=== PATIENT | male | born 1990 | race Caucasian/White ===

== ENCOUNTER 2017-09-07 18:30 | Emergency (ER) | payer SELFPAY ==
[~2017-09-07] VITALS: Ht 175.3 cm; Wt 58.1 kg
[2017-09-07 18:34] VITALS: BP_SYST 154; BP_SYST 91; BP_DIAS 111; BP_DIAS 91; PULSE 111; PULSE 18; RESP 18; TEMP 97.9; O2SAT 99
[2017-09-07 18:56] VITALS: BP 141/88; PULSE 108; RESP 18; O2SAT 100
[2017-09-07] MEDS ORDERED: VIVI380I IM (19:24)
[2017-09-07] MEDS ORDERED: SODIUM CHLOR 0.9% 1000 ML INJ 1,000 ML IV ONE (19:30)
[2017-09-07 19:47] VITALS: O2SAT 97
--- NOTE | 2017-09-07 19:53 | PD ---
HPI Chief Complaint: Edema Time Seen by Provider: 19:22 Travel History International Travel<30 days: No Contact w/Intl Traveler<30days: No Traveled to known affect area: No History of Present Illness HPI 27-year-old male presents to the emergency department for not feeling well over the last 6 hours to one day. Patient admits to IV drug abuse. Patient admits to IV cocaine use. Patient states last injection was one hour prior to arrival to the emergency department. Patient reports feeling cold throughout the day. Patient is taking hot showers to try to warm himself up. Is not noted any fever. Patient also has intermittent episodes of chest pain although denies any chest pain this time is intermittent episodes of feeling short of breath but does not feel short of breath at this time days noticed that he thinks his hands seem a little bit more red than usual and is does seem more red than usual. Patient denies any abdominal pain. Does not report any nausea or vomiting. Occasionally has right-sided flank pain. Denies any lower extremity numbness tingling weakness bladder or bowel dysfunction or saddle anesthesia. Father states she's been using cocaine and Xanax frequently over the past 10-11 days. Patient also admits to alcohol use tobacco use and marijuana use. Patient reports his primary places of injection both upper extremities and his left inner thigh. Patient admits to prior Dilaudid abuse. Patient rates pain, 0 /10. PFSH Past Medical History Medical History: Denies Significant Hx Past Surgical History Surgical History: No Previous Surgery Social History Alcohol Use: Yes (REFUSES TO QUANTIFY) Tobacco Use: Yes (REFUSES TO QUANTIFY) Substance Use: Yes (COCAINE, XANAX, POT) Allergies-Medications (Allergen,Severity, Reaction): Coded Allergies: No Known Allergies (Verified Allergy, Unknown, 09/07/17) Reported Meds & Prescriptions Reported Meds & Active Scripts Active Reported Vivitrol Inj (Naltrexone Inj) 380 Mg Inj 380 Mg IM Q28D Review of Systems Except as stated in HPI: all other systems reviewed are Neg General / Constitutional: Positive: Chills, No: Fever HENT: Positive: Lightheadedness, No: Headaches, Sore Throat, Congestion, Neck Stiffness, Neck Pain Cardiovascular: Positive: Chest Pain or Discomfort (intermittently none now), No: Syncope Respiratory: Positive: Shortness of Breath (occasionally, none now), No: Cough , Pleuritic Pain (intermittently none now) Gastrointestinal: No: Nausea, Vomiting, Diarrhea, Abdominal Pain Genitourinary: Positive: Flank Pain (right flank intermittently), No: Dysuria Musculoskeletal: Positive: Edema (fingers and toes today intermittently no pallor), No: Myalgias, Arthralgias, Limited ROM, Weakness, Cramping, Pain Skin: Positive Rash (multiple scars over the upper extremities and left medial thigh from IV drug abuse injection sites) Neurologic: Positive: Weakness, No: Dizziness, Syncope, Focal Abnormalities, Coordination Problem, Headache, Slurred Speech, Paresthesia, Seizures Psychiatric: Positive: Substance Abuse, No: Suicidal Ideations, Disorder of Thought, Mood Disorder Endocrine: No: Heat Intolerance, Cold Intolerance Hematologic/Lymphatic: No: Easy Bruising Physical Exam Narrative GENERAL: Well-developed well-nourished male in no acute distress no respiratory distress; GCS 15 SKIN: Warm and dry. Multiple track villeda over the bilateral upper extremities and left medial thigh no redness no induration no drainage no fluctuance no ecchymosis no point tenderness vesicles no pustules no petechia no purpura. No Janeway or Osler's lesions. HEAD: Atraumatic. Normocephalic. EYES: Pupils equal and round. No scleral icterus. No injection or drainage. ENT: No nasal bleeding or discharge. Mucous membranes pink and moist. NECK: Trachea midline. No JVD. CARDIOVASCULAR: Regular rate and rhythm. No murmurs rubs or gallops. RESPIRATORY: No accessory muscle use. Clear to auscultation. Breath sounds equal bilaterally. GASTROINTESTINAL: Abdomen soft, non-tender, nondistended. Hepatic and splenic margins not palpable. MUSCULOSKELETAL: Extremities without clubbing, cyanosis, or edema. No obvious deformities. Bilateral hands demonstrate intact range of motion of each digit including thumb apposition capillary refill intact with each visit no edema no pallor no erythema no increased warmth no coolness no deformity multiple track villeda were bilateral upper extremities and noted to the left medial thigh bilateral digits of the feet hold erythema no increased warmth capillary refill brisk and less than 2 seconds sensation intact no fullness vesicles no pustules is a small ecchymotic area to the medial dorsal distal left foot patient reports present for several days after contusing it against something denies pain. Dorsalis pedis pulses 2+ to palpation bilaterally as well as posterior tibialis pulses and radial pulses 2+ to palpation bilaterally. No tenderness to palpation along the dorsal or lumbar spine. NEUROLOGICAL: Awake and alert. No obvious cranial nerve deficits. Motor grossly within normal limits. Five out of 5 muscle strength in the arms and legs. Sensory exam intact as tested. DTRs 2+ and equal bilaterally. Normal speech. PSYCHIATRIC: Appropriate mood and affect; insight and judgment normal. Data Data Last Documented VS Vital Signs Date Time Temp Pulse Resp B/P (MAP) Pulse Ox O2 Delivery O2 Flow Rate FiO2 09/07/17 20:10 103 18 137/85 (102) 99 Room Air 09/07/17 18:34 97.9 Orders Orders Sepsis Workup Initiated (09/07/17 ) Electrocardiogram (09/07/17:22) Complete Blood Count With Diff (09/07/17:) Comprehensive Metabolic Panel (09/07/17:) Prothrombin Time / Inr (Pt) (09/07/17:) Act Partial Throm Time (Ptt) (09/07/17:) Lactic Acid Sepsis Protocol (09/07/17 19:22) Magnesium (Mg) (09/07/17 19:22) Ckmb (Isoenzyme) Profile (09/07/17:) Troponin I (09/07/17:) Urinalysis - C+S If Indicated (09/07/17 19:22) Blood Culture (09/07/17 19:22) Chest, Single Ap (09/07/17:) Blood Glucose (09/07/17:22) Ecg Monitoring (09/07/17:) Iv Access Insert/Monitor (09/07/17 19:22) Oximetry (09/07/17 19:22) Oxygen Administration (09/07/17:22) Sodium Chlor 0.9% 1000 Ml Inj (Ns 1000 M (09/07/17 19:30) Drug Screen, Random Urine (09/07/17 19:22) Labs Laboratory Tests Test 09/07/17 19:47 White Blood Count 7.2 TH/MM3 Red Blood Count 4.89 MIL/MM3 Hemoglobin 13.6 GM/DL Hematocrit 42.0 % Mean Corpuscular Volume 85.9 FL Mean Corpuscular Hemoglobin 27.9 PG Mean Corpuscular Hemoglobin Concent 32.4 % Red Cell Distribution Width 14.1 % Platelet Count 480 TH/MM3 Mean Platelet Volume 6.7 FL Neutrophils (%) (Auto) 71.8 % Lymphocytes (%) (Auto) 18.7 % Monocytes (%) (Auto) 8.1 % Eosinophils (%) (Auto) 0.9 % Basophils (%) (Auto) 0.5 % Neutrophils # (Auto) 5.2 TH/MM3 Lymphocytes # (Auto) 1.3 TH/MM3 Monocytes # (Auto) 0.6 TH/MM3 Eosinophils # (Auto) 0.1 TH/MM3 Basophils # (Auto) 0.0 TH/MM3 CBC Comment DIFF FINAL Differential Comment Prothrombin Time 12.0 SEC Prothromb Time International Ratio 1.2 RATIO Activated Partial Thromboplast Time 34.2 SEC Urine Color YELLOW Urine Turbidity CLEAR Urine pH 5.5 Urine Specific [place] 1.006 Urine Protein NEG mg/dL Urine Glucose (UA) NEG mg/dL Urine Ketones 15 mg/dL Urine Occult Blood TRACE Urine Nitrite NEG Urine Bilirubin NEG Urine Leukocyte Esterase NEG Urine WBC 0-2 /hpf Urine Squamous Epithelial Cells 0-5 /hpf Microscopic Urinalysis Comment CATH-CULT NOT IND Blood Urea Nitrogen 10 MG/DL Creatinine 1.00 MG/DL Random Glucose 76 MG/DL Total Protein 8.8 GM/DL Albumin 3.9 GM/DL Calcium Level 9.0 MG/DL Magnesium Level 2.5 MG/DL Alkaline Phosphatase 42 U/L Aspartate Amino Transf (AST/SGOT) 16 U/L Alanine Aminotransferase (ALT/SGPT) 17 U/L Total Bilirubin 0.6 MG/DL Sodium Level 135 MEQ/L Potassium Level 3.4 MEQ/L Chloride Level 97 MEQ/L Carbon Dioxide Level 29.1 MEQ/L Anion Gap 9 MEQ/L Estimat Glomerular Filtration Rate 90 ML/MIN Lactic Acid Level 1.0 mmol/L Total Creatine Kinase 59 U/L Troponin I LESS THAN 0.02 NG/ML Urine Opiates Screen NEG Urine Barbiturates Screen NEG Urine Amphetamines Screen NEG Urine Benzodiazepines Screen POS Urine Cocaine Screen POS Urine Cannabinoids Screen NEG [facility] Medical Decision Making Medical Screen Exam Complete: Yes Emergency Medical Condition: Yes Medical Record Reviewed: Yes Interpretation(s) EKG: Sinus rhythm rate 98 left atrial enlargement no acute ST elevation injury pattern or ectopy noted CBC & BMP Diagram 09/07/17 19:47 Total Protein 8.8 H, Albumin 3.9, Calcium Level 9.0, Magnesium Level 2.5, Alkaline Phosphatase 42 L, Aspartate Amino Transf (AST/SGOT) 16, Alanine Aminotransferase (ALT/SGPT) 17, Total Bilirubin 0.6 Vital Signs Date Time Temp Pulse Resp B/P (MAP) Pulse Ox O2 Delivery O2 Flow Rate FiO2 09/07/17 20:10 103 18 137/85 (102) 99 Room Air 09/07/17 19:47 97 Room Air 09/07/17 18:56 108 18 100 Room Air 09/07/17 18:56 108 18 141/88 (105) 100 Room Air 09/07/17 18:34 97.9 111 18 154/91 (112) 99 Lactic: 1.0 ck: 59, not elevated; trop i:,0.02, not elevated Differential Diagnosis Polysubstance abuse, accidental overdose, septic emboli, sepsis, arrhythmia; no clinical findings for endocarditis, epidural abscess, sepsis, dvt Narrative Course Patient placed on manager cardiac cath IV access obtained specimens collected and sent for resulting EKG performed shows sinus rhythm no acute ST elevation or injury pattern or ectopy noted B @ 8:38 PM lab values resulted imaging studies show nothing acute EKG shows nothing acute drug screen is positive for benzodiazepines and cocaine which patient admits to using over the past 7-10 days; at this point I'm physical exam is unremarkable for any focality on exam no murmur no rub no rales no rhonchi nontender abdomen flank and no Janeway lesions as well as nursing notes no point tenderness along the spine. Patient at this point in time reports he feels clinically improved after 1 L of normal saline vital signs remained stable and patient is stable for outpatient management with ongoing discussion with recommendation for discontinue substance use. Patient is also encouraged her to the emergency department for any ongoing or worsening symptoms and something may be in the process of developing that has not been identified at this time patient is aware of this is to monitor his temperature with thermometer take acetaminophen as needed for fever and return to the emergency department for any concerns. Father is at bedside. Diagnosis Primary Impression: Substance use disorder Referrals: Primary Care Physician 3 days Patient Instructions: General Instructions Additional Instructions: Discontinue substance use Follow-up with your primary care provider Monitor temperature every 4 hours with thermometer take as needed acetaminophen/ Tylenol for fever 100.4F or greater Return to the emergency department for pain fever vomiting or any concerns Add potassium containing foods and beverages to dietary intake Increase fluid hydration with non-alcoholic beverages Disposition: 01 DISCHARGE HOME Condition: Stable Jeanette Ndiaye MD Sep 07, 2017 19:53
[2017-09-07 19:56] LABS: AUTOMATED NEUTROPHIL # 5.2 TH/MM3 (1.8-7.7); BASOPHIL % 0.5 % (0.0-2.0); EOSINOPHIL # 0.1 TH/MM3 (0-0.4); EOSINOPHIL % 0.9 % (0.0-4.0); HEMOGLOBIN 13.6 GM/DL (13.0-17.0); LYMPH % 18.7 % (9.0-44.0); LYMPHOCYTE # 1.3 TH/MM3 (1.0-4.8); MEAN CELL VOLUME 85.9 FL (80.0-100.0); MEAN CORPUSCULAR HEMOGLOBIN 27.9 PG (27.0-34.0); MEAN CORPUSCULAR HGB CONC 32.4 % (32.0-36.0); MEAN PLATELET VOLUME 6.7 FL (7.0-11.0); MONO % 8.1 % (0.0-8.0); MONOCYTE # 0.6 TH/MM3 (0-0.9); NEUT % 71.8 % (16.0-70.0); PLATELET COUNT 480 TH/MM3 (150-450); RED BLOOD COUNT 4.89 MIL/MM3 (4.50-5.90); RED CELL DISTRIBUTION WIDTH 14.1 % (11.6-17.2); WHITE BLOOD COUNT 7.2 TH/MM3 (4.0-11.0)
[2017-09-07 19:57] LABS: BILIRUBIN, URINE NEG (NEG); BLOOD, URINE TRACE (NEG); GLUCOSE,URINE NEG (NEG); KETONE, URINE 15 mg/dL (NEG); NITRITE,URINE NEG (NEG); PH, URINE 5.5 (5.0-8.5); URINE LEUKOCYTE ESTERASE NEG (NEG)
[2017-09-07 20:02] LABS: SQUAMOUS EPITHELIAL CELL URINE 0-5 /hpf (0-5); URINE COLOR YELLOW (YELLW/STRAW); WBC, URINE 0-2 /hpf (0-5)
[2017-09-07 20:07] LABS: CHLORIDE 97 MEQ/L (98-107); SODIUM (NA) 135 MEQ/L (136-145)
[2017-09-07 20:10] VITALS: BP 137/85; PULSE 103; RESP 18; O2SAT 99
[2017-09-07 20:11] LABS: ALBUMIN 3.9 GM/DL (3.4-5.0); BICARBONATE 29.1 MEQ/L (21.0-32.0); BLOOD UREA NITROGEN 10 MG/DL (7-18); GLUCOSE,RANDOM 76 MG/DL (74-106); MAGNESIUM 2.5 MG/DL (1.5-2.5)
[2017-09-07 20:13] LABS: INTERNATIONAL NORMALIZED RATIO 1.2 RATIO
[2017-09-07 20:14] LABS: ALT (GPT) 17 U/L (12-78); AST (GOT) 16 U/L (15-37); GLOMERULAR FILTRATION RATE 90 ML/MIN (>89)
[2017-09-07 20:16] LABS: TOTAL BILIRUBIN ADULT 0.6 MG/DL (0.2-1.0); TOTAL PROTEIN 8.8 GM/DL (6.4-8.2)
[2017-09-07 20:17] LABS: ALKALINE PHOSPHATASE 42 U/L (45-117)
[2017-09-07 20:19] LABS: TROPONIN I LESS THAN 0.02 NG/ML (0.02-0.05)
--- NOTE | 2017-09-07 20:22 | RADRPT ---
EXAM DATE/TIME: 09/07/2017 20:08 [place] COMPARISON: No previous studies available for comparison. INDICATIONS : Fever. MEDICAL HISTORY : None. SURGICAL HISTORY : None. ENCOUNTER: Initial ACUITY: 1 day PAIN SCORE: 4/10 LOCATION: Bilateral chest FINDINGS: A single view of the chest demonstrates the lungs to be symmetrically aerated without evidence of mas s, infiltrate or effusion. The cardiomediastinal contours are unremarkable. Osseous structures are intact. CONCLUSION: Normal examination. Diego López Jr., MD on September 07, 2017 at 20:20 Board Certified Radiologist. This report was verified electronically.
[2017-09-07 21:02] VITALS: BP 119/72
--- NOTE | 2017-09-08 13:13 | EKG ---
Date Performed: 09/07/2017 Time Performed: 19:38:52 PTAGE: 27 years EKG: Sinus rhythm POSSIBLE LEFT ATRIAL ENLARGEMENT BORDERLINE ECG NO PREVIOUS TRACING DOCTOR: Adolfo Potts Interpretating Date/Time 09/08/2017 13:12:59
== END 2017-09-07 21:09 | disposition home or self-care (01) ==
LOC: PHED 18:30
DX: F19.10 Other psychoactive substance abuse, uncomplicated (principal); R10.9 Unspecified abdominal pain; R94.31 Abnormal electrocardiogram [ECG] [EKG]; F14.10 Cocaine abuse, uncomplicated; F12.90 Cannabis use, unspecified, uncomplicated; Z72.0 Tobacco use; Z72.89 Other problems related to lifestyle
CPT/HCPCS: 71045; 80053; 80307; 81001; 82550; 83605; 83735; 84484; 85025; 85610; 85730; 87040; 93005; 96360; 99285; J7030